=== PATIENT | male | born 1960 | race Asian ===

== ENCOUNTER 2022-01-02 09:03 | Inpatient (IN) | payer OTHER ==
[~2022-01-02] VITALS: Ht 177.8 cm; Wt 89.9 kg
[2022-01-02] MEDS ORDERED: ALLO-97 PO (09:26)
[2022-01-02] MEDS ORDERED: AMLO-257 PO (09:26)
[2022-01-02] MEDS ORDERED: LISI-893 PO (09:26)
[2022-01-02] MEDS ORDERED: PRAV10TA39 PO (09:26)
[2022-01-02] MEDS ORDERED: VANCOMYCIN HCL 1.25 GM in DEXTROSE 5%-WATER 250 ML IV ONE (10:00)
[2022-01-02] MEDS ORDERED: ACETAMINOPHEN 500 MG TABLET PO ONE (10:00)
[2022-01-02] MEDS ORDERED: SODIUM CHLORIDE 0.9% 1,000 ML IV ONE (10:00)
[2022-01-02] MEDS ORDERED: CLINDAMYCIN 600 MG/D5% WATER 50 ML IV ONE (10:00)
[2022-01-02 11:01] LABS: BASOPHILS % (AUTO) 0.4 % (0.0-2.0); EOSINOPHILS % (AUTO) 0.7 % (1.0-6.0); HEMATOCRIT 41.6 % (41-53); HEMOGLOBIN 13.7 g/dL (13.5-17.5); LYMPHOCYTES # (AUTO) 1.1 K/uL (1.0-4.8); LYMPHOCYTES % (AUTO) 12.7 % (22.0-44.0); MEAN CORPUSCULAR HEMOGLOBIN 29.1 pg (26.0-34.0); MEAN CORPUSCULAR VOLUME 88 fL (80-100); MONOCYTES # (AUTO) 0.6 K/uL (0.1-1.0); MONOCYTES % (AUTO) 6.5 % (2.0-9.0); NEUTROPHILS # (AUTO) 6.8 K/uL (1.8-7.7); NEUTROPHILS % (AUTO) 79.7 % (40.0-70.0); PLATELET COUNT (AUTO) 206 K/uL (150-450); RED BLOOD CELL COUNT(AUTO) 4.71 MIL/uL (4.50-5.90); RED CELL DISTRIBUTION WIDTH 13.6 % (11.5-14.5)
[2022-01-02 11:27] LABS: LACTIC ACID 0.6 mmol/L (0.4-2.0)
[2022-01-02 11:32] LABS: CALCIUM, TOTAL 9.5 mg/dL (8.8-10.5); CREATININE 1.41 mg/dL (0.60-1.30); POTASSIUM 4.2 mmol/L (3.5-5.1)
[2022-01-02 11:37] LABS: ALBUMIN 4.2 g/dL (3.4-5.0); BILIRUBIN,TOTAL 0.6 mg/dL (0.1-1.0); TOTAL PROTEIN, SERUM 8.2 g/dL (6.4-8.2)
[2022-01-02] MEDS ORDERED: MAGNESIUM HYDROXIDE SUSPENSION 30 ML UDCUP PO PRN (15:15)
[2022-01-02] MEDS ORDERED: ZOLPIDEM TARTRATE 5 MG TABLET PO PRN (15:15)
[2022-01-02] MEDS ORDERED: ONDANSETRON HCL 4 MG/2 ML VIAL IVP PRN (15:15)
[2022-01-02] MEDS ORDERED: ACETAMINOPHEN 325 MG TABLET PO PRN (15:15)
[2022-01-02] MEDS ORDERED: OxyCODONE HCL/ACETAMINOPHEN 5-325 MG TABLET PO PRN (15:15)
[2022-01-02] MEDS: HEPARIN SODIUM,PORCINE 5,000 UNITS/ML VIAL SQ SCH ×2 (16:00→23:33)
[2022-01-02] MEDS: CLINDAMYCIN 600 MG/D5% WATER 50 ML IV SCH (19:24)
[2022-01-02] MEDS: OxyCODONE HCL/ACETAMINOPHEN 5-325 MG TABLET PO PRN (19:24)
[2022-01-02 20:56] LABS: COVID AG,FIA SOURCE NASOPHARYNGEAL
[2022-01-02 21:23] LABS: APPEARANCE,URINE CLEAR (CLEAR); BILIRUBIN,URINE NEGATIVE (NEGATIVE); GLUCOSE, URINE (UA) NEGATIVE (NEGATIVE); KETONES,URINE NEGATIVE (NEGATIVE); LEUKOCYTE ESTERASE ,URINE NEGATIVE (NEGATIVE); NITRATE,URINE NEGATIVE (NEGATIVE); OCCULT BLOOD,URINE NEGATIVE (NEGATIVE); PH,URINE 7.5 (5.0-8.0); PROTEIN,URINE NEGATIVE (NEGATIVE); SPECIFIC GRAVITIY, URINE 1.012 (1.003-1.030); UROBILINOGEN,URINE <=1.0 mg/dL (<=1.0)
[2022-01-02 21:45] VITALS: BP 141/91
[2022-01-02] MEDS: ATORVASTATIN CALCIUM 20 MG TABLET PO SCH (22:13)
[2022-01-02] MEDS: DOCUSATE SODIUM 100 MG CAPSULE PO SCH (22:13)
[2022-01-02] MEDS ORDERED: SODIUM CHLORIDE 0.9% 500 ML IV ONE (23:52)
[2022-01-03] MEDS: CLINDAMYCIN 600 MG/D5% WATER 50 ML IV SCH ×3 (03:49→20:10)
[2022-01-03 04:22] VITALS: BP 119/74
[2022-01-03 07:36] VITALS: BP 130/75
[2022-01-03] MEDS: FAMOTIDINE 20 MG TABLET PO SCH (08:38)
[2022-01-03] MEDS: DOCUSATE SODIUM 100 MG CAPSULE PO SCH ×2 (08:38→20:11)
[2022-01-03] MEDS: HEPARIN SODIUM,PORCINE 5,000 UNITS/ML VIAL SQ SCH ×3 (08:39→23:34)
[2022-01-03] MEDS: ASPIRIN 81 MG CHEWABLE TABLET PO SCH (08:39)
[2022-01-03] MEDS ORDERED: LIDOCAINE 2%/EPI 1:200,000/PF 20 ML VIAL ID ONE (12:30)
[2022-01-03 16:10] VITALS: BP 134/80
[2022-01-03 20:08] VITALS: BP 111/86
[2022-01-03] MEDS: ATORVASTATIN CALCIUM 20 MG TABLET PO SCH (20:10)
[2022-01-04] MEDS: CLINDAMYCIN 600 MG/D5% WATER 50 ML IV SCH ×3 (03:24→20:34)
[2022-01-04 04:09] VITALS: BP 126/84
[2022-01-04 07:59] VITALS: BP 134/85
[2022-01-04] MEDS: FAMOTIDINE 20 MG TABLET PO SCH (08:40)
[2022-01-04] MEDS: ALLOPURINOL 100 MG TABLET PO SCH (08:40)
[2022-01-04] MEDS: HEPARIN SODIUM,PORCINE 5,000 UNITS/ML VIAL SQ SCH ×3 (08:40→23:58)
[2022-01-04] MEDS: AmLODIPine BESYLATE 5 MG TABLET PO SCH (08:40)
[2022-01-04] MEDS: ASPIRIN 81 MG CHEWABLE TABLET PO SCH (08:40)
[2022-01-04] MEDS: PRAVASTATIN SODIUM 10 MG TABLET PO SCH (08:40)
[2022-01-04] MEDS: DOCUSATE SODIUM 100 MG CAPSULE PO SCH ×2 (08:41→20:35)
[2022-01-04 15:41] VITALS: BP 141/87
[2022-01-04] MEDS: OxyCODONE HCL/ACETAMINOPHEN 5-325 MG TABLET PO PRN ×2 (16:55→23:58)
[2022-01-04] MEDS ORDERED: ASPI-1450 PO (19:34)
[2022-01-04] MEDS ORDERED: ATOR20TA86 PO (19:35)
[2022-01-04] MEDS ORDERED: [UNRECOGNIZED DRUG - CODE] IV (19:37)
[2022-01-04] MEDS ORDERED: FAMO20 PO (19:41)
[2022-01-04] MEDS ORDERED: PRAV10TA39 PO (19:42)
[2022-01-04] MEDS ORDERED: LEVO250T75 PO (19:43)
[2022-01-04 20:00] VITALS: BP 144/81
[2022-01-04] MEDS: ATORVASTATIN CALCIUM 20 MG TABLET PO SCH (20:35)
[2022-01-05 04:10] VITALS: BP 124/97
[2022-01-05] MEDS: CLINDAMYCIN 600 MG/D5% WATER 50 ML IV SCH (04:25)
[2022-01-05] MEDS: OxyCODONE HCL/ACETAMINOPHEN 5-325 MG TABLET PO PRN (04:49)
[2022-01-05 07:28] VITALS: BP 151/81
[2022-01-05] MEDS: AmLODIPine BESYLATE 5 MG TABLET PO SCH (08:07)
[2022-01-05] MEDS: ALLOPURINOL 100 MG TABLET PO SCH (08:07)
[2022-01-05] MEDS: FAMOTIDINE 20 MG TABLET PO SCH (08:07)
[2022-01-05] MEDS: PRAVASTATIN SODIUM 10 MG TABLET PO SCH (08:07)
[2022-01-05] MEDS: DOCUSATE SODIUM 100 MG CAPSULE PO SCH (08:07)
[2022-01-05] MEDS: ASPIRIN 81 MG CHEWABLE TABLET PO SCH (08:07)
[2022-01-05] MEDS: HEPARIN SODIUM,PORCINE 5,000 UNITS/ML VIAL SQ SCH (08:08)
[2022-01-06] MEDS ORDERED: PredniSONE 20 MG TABLET PO SCH (09:00)
== END 2022-01-05 11:15 | DRG 571 ==
LOC: EMS 09:07 → 6S 18:38
PROVIDERS: ADMIT Internal Medicine; ATTEND Internal Medicine
PROC: 0JBP0ZZ Excision of Left Lower Leg Subcutaneous Tissue and Fascia, Open Approach (ICD-10-PCS; principal; 2022-01-03)
DX: L03.116 Cellulitis of left lower limb (principal); N17.9 Acute kidney failure, unspecified; Z20.822 Contact with and (suspected) exposure to COVID-19; E78.00 Pure hypercholesterolemia, unspecified; I10 Essential (primary) hypertension; L02.416 Cutaneous abscess of left lower limb; M10.9 Gout, unspecified; Z79.82 Long term (current) use of aspirin; Z79.899 Other long term (current) drug therapy; Z83.3 Family history of diabetes mellitus; Z86.73 Personal history of transient ischemic attack (TIA), and cerebral infarction without residual deficits
CPT/HCPCS: 80053; 81003; 83605; 85025; 87040; 87070; 87186; 87205; 99285; G0378; J1644; J3370; J3490; J7040; J7060